=== PATIENT | female | born 1960 | race African-American/Black ===

== ENCOUNTER 2018-10-15 06:02 | Day surgery (SDC) | payer OTHER ==
[~2018-10-15] VITALS: Ht 170.2 cm; Wt 86.5 kg
[~2018-10-15 06:02] MED LIST: cholesterol PO; tramadol PO
[2018-10-15 06:50] VITALS: Ht 170.2 cm; Wt 86.5 kg
[2018-10-15] MEDS ORDERED: SIMV20TA2 PO (07:02)
[2018-10-15] MEDS ORDERED: OMEP20CA16 PO (07:02)
[2018-10-15] MEDS ORDERED: LOSA1TAB22 PO (07:02)
--- NOTE | 2018-10-15 07:16 | PREAC ---
Date/Time of Note Date/Time of Note DATE: 10/15/18 TIME: 07:15 Anesthesia Eval and Record Evaluation Time Pre-Procedure Interview DATE: 10/15/18 TIME: 07:15 Age 58 Sex female NPO: 8 hrs Preoperative diagnosis abdominal pain / positive occult blood Planned procedure EGD / colonoscopy Past Medical History Past Medical History: Includes Cardio: HTN, Dyslipidemia GI: GERD Surgery & Anesthesia Issues No known issue Meds Anticoagulation: No Beta Tawanda within 24 hr: No Reason Beta Tawanda not given: Pt. not on B-Tawanda Reported Medications Omeprazole* (Omeprazole*) 20 Mg Capsule.dr, 20 MG PO DAILY, #30 CAP 10/15/18 Simvastatin (Simvastatin) 20 Mg Tablet, 20 MG PO QHS, #30 TAB 10/15/18 Losartan-Hydrochlorothiazide (Losartan-HCTZ) 50-12.5 Mg Tab, 1 TAB PO DAILY, TAB 10/15/18 Discontinued Reported Medications [cholesterol] No Conflict Check, PO DAILY 04/21/16 [tramadol] No Conflict Check, PO DAILY for PAIN AND/OR INFLAMMATION 04/21/16 Meds reviewed: Yes Allergies Uncoded Allergies: AMOXICCILLIN (Adverse Reaction, Severe, RASHES, 10/15/18) Allergies Reviewed: Yes Labs/Studies Labs Reviewed: Other (NA) test: N/A Pre-procedure Exam Airway: Adequate mouth opening Mallampati: Mallampati II Teeth: Normal Lung: Normal Heart: Normal ASA Physical Status ASA physical status: 2 Emergency: None Planned Anesthetic General/MAC: MAC Pre-operative Attestations Prior to commencing anesthesia and surgery, the patient was re-evaluated, there was verification of: *The patient's identity *The results of appropriate recent lab work and preoperative vital signs *The above evaluation not changing prior to induction *Anesthetic plan, risk benefits, alternative and complications discussed with patient/family; questions answered; patient/family understands, accepts and wishes to proceed. DYLAN LEMONS Oct 15, 2018 07:16
[2018-10-15] MEDS ORDERED: LIDOCAINE 100 MG SYRINGE ONE (07:24)
[2018-10-15] MEDS ORDERED: PROPOFOL 40 ML ONE (07:24)
[2018-10-15] MEDS ORDERED: LABETALOL HCL 20MG INJ IV PRN (07:30)
[2018-10-15] MEDS ORDERED: hydrALAzine 20 MG INJ IV PRN (07:30)
[2018-10-15 08:15] VITALS: BP 157/71; PULSE 61; RESP 20
--- NOTE | 2018-10-15 08:27 | PAC ---
Date/Time of Note Date/Time of Note DATE: 10/15/18 TIME: 08:26 Post-Anesthesia Notes Post-Anesthesia Note Last documented vital signs Vital Signs Date Temp Pulse Resp B/P (MAP) Pulse Ox O2 O2 Flow FiO2 Time Delivery Rate 10/15/18 97.2 61 20 157/71 100 Room Air 08:15 (99) Activity: WNL Respiratory function: WNL Cardiovascular function: WNL Mental status: Baseline Pain reasonably controlled: Yes Hydration appropriate: Yes Nausea/Vomiting absent: Yes DYLAN LEMONS Oct 15, 2018 08:27
[2018-10-15 09:00] VITALS: BP 155/78; PULSE 66; RESP 16
== END 2018-10-15 11:35 | disposition home or self-care (01) ==
LOC: GIL 06:02
PROVIDERS: ATTEND Internal Medicine Gastroenterology
DX: K92.1 Melena (principal); K64.8 Other hemorrhoids; K44.9 Diaphragmatic hernia without obstruction or gangrene; K29.30 Chronic superficial gastritis without bleeding; I10 Essential (primary) hypertension
CPT/HCPCS: 43239; 45378; J2001; Z7610; 88305; 88312